=== PATIENT | male | born 1995 | race Caucasian/White ===

== ENCOUNTER 2022-01-04 18:15 | Emergency (ER) | payer MEDICAID ==
[~2022-01-04] VITALS: Ht 175.3 cm; Wt 70.5 kg
[2022-01-04 18:40] VITALS: BP 125/82
[2022-01-04] MEDS ORDERED: CEPH500C2 PO (23:16)
[2022-01-04] MEDS ORDERED: cephalexin 250mg capsule PO ONE (23:20)
== END 2022-01-04 23:36 | disposition home or self-care (01) ==
LOC: ER 18:17
DX: H60.01 Abscess of right external ear (principal); Z79.2 Long term (current) use of antibiotics
CPT/HCPCS: 99283

== ENCOUNTER 2022-05-15 08:36 | Emergency (ER) | payer MEDICAID ==
[~2022-05-15] VITALS: Ht 177.8 cm; Wt 63.6 kg
[2022-05-15 09:17] VITALS: BP 134/87
[2022-05-15] MEDS ORDERED: LIDOcaine 4% (40 mg/ml) topical solution 50ml MM ONE (13:15)
[2022-05-15] MEDS ORDERED: HYDR-3972 PO (13:21)
[2022-05-15] MEDS ORDERED: CLIN300C17 PO (13:21)
== END 2022-05-15 14:09 | disposition home or self-care (01) ==
LOC: ER 08:36
DX: K04.7 Periapical abscess without sinus (principal); Z79.2 Long term (current) use of antibiotics; Z79.899 Other long term (current) drug therapy
CPT/HCPCS: 99283

== ENCOUNTER 2022-09-07 14:31 | Emergency (ER) | payer MEDICAID ==
[~2022-09-07] VITALS: Ht 177.8 cm; Wt 65.9 kg
[~2022-09-07 14:31] MED LIST: CLIN300C17 PO
[2022-09-07] MEDS ORDERED: AMOX-117 PO (20:43)
[2022-09-07] MEDS ORDERED: PRED20TA PO (20:43)
== END 2022-09-07 20:47 | disposition home or self-care (01) ==
LOC: ER 14:34
DX: H66.90 Otitis media, unspecified, unspecified ear (principal); Z20.822 Contact with and (suspected) exposure to COVID-19
CPT/HCPCS: 71045; 87635; 99284; C9803